=== PATIENT | female | born 1955 | race Caucasian/White ===

== ENCOUNTER 2017-04-25 21:02 | Emergency (ER) | payer BC ==
[~2017-04-25 21:02] MED LIST: *UNABLE2; CHLOR-PHENIR4 MG PO; CIP5 PO; CYMBALTA; CYMBALTA30 PO; DIL2TAB PO; DOLOPHINE5 MG PO; EFFEX75 PO; EXCEDRIN EXTRA1 EACH PO; GABAPENTIN; LEVOTHYROXIN150 MCG PO; LEVOTHYROXINE; LISINOPRIL; LISINOPRIL40 MG PO; METHATAB5B PO; MIRALAXPKT PO; MYLANTA ULTR1 TAB PO; Methadone; NEUR400 PO; NORV5 PO; NORVASC; OMEPRAZOLE; OXYCOD PO; OXYCODONE; PRILOSEC40 MG PO; SOMA; SOMATAB; SOMATAB PO; T PO; TOPROL; TOPXL50 PO; VITAMIN B-121000 MC1 SL; VITAMIN D31000 UNIT PO; ZINC220C PO; ZOFRAN4 PO; ZYVOXPO PO
[2017-04-25 22:05] LABS: BASOPHILS 0.3 %; BASOPHILS ABSOLUTE 0.03 10/3/uL (0.0-0.16); EOSINOPHILS 3.5 %; EOSINOPHILS ABSOLUTE 0.31 10/3/uL (0.0-0.53); HEMOGLOBIN 10.7 g/dL (12.0-16.0); IMMATURE GRANULOCYTES 0.6 %; IMMATURE GRANULOCYTES ABSOLUTE 0.05 10/3/uL (0.0-0.11); LYMPHOCYTES 26.2 %; LYMPHOCYTES ABSOLUTE 2.32 10/3/uL (0.67-4.30); MEAN CORPUS HGB CONC 30.1 g/dL (32.0-36.0); MEAN CORPUSCULAR HEMOGLOB 25.6 pg (26.0-34.0); MONOCYTES 8.7 %; MONOCYTES ABSOLUTE 0.77 10/3/uL (0.21-1.20); NEUTROPHILS 60.7 %; NEUTROPHILS ABSOLUTE 5.39 10/3/uL (2.02-8.40); RBC DISTRIBUTION WIDTH 15.9 % (12.0-16.0); RED CELL COUNT 4.18 10/6/uL (4.0-5.6)
[2017-04-25 22:11] LABS: ER CBC TAT 0 Hrs 11 Mins; HEMATOCRIT 35.5 % (36.0-48.0); MANUAL DIFF NO %; MEAN CORPUSCULAR VOLUME 84.9 fL (80-100); PLATELET COUNT 392 10/3/uL (150-400); WHITE BLOOD CELLS 8.9 10/3/uL (4.5-10.5)
[2017-04-25 22:24] LABS: A/G RATIO 0.8 (0.7-1.9); ALBUMIN 3.2 G/DL (3.5-5.0); ALKALINE PHOSPHATASE 119 U/L (45-117); BUN (BLOOD UREA NITROGEN) 18 MG/DL (6-23); CALCIUM, SERUM 8.5 MG/DL (8.5-10.4); CHLORIDE, SERUM 111 MMOL/L (96-112); CO2 (CARBON DIOXIDE) 26 MMOL/L (24-34); CREATININE 0.96 MG/DL (0.55-1.02); GFR AFRICAN AMERICAN 75 ML/MIN (>=60); GFR NON AFRICAN AMERICAN 64 ML/MIN (>=60); GLOBULIN 3.9 G/DL (2.5-4.1); GLUCOSE, SERUM 89 MG/DL (60-99); POTASSIUM, SERUM 4.2 MMOL/L (3.5-5.3); SGOT(AST) 16 U/L (5-40); SGPT(ALT) 20 U/L (5-65); SODIUM, SERUM 145 MMOL/L (135-148); TOTAL BILIRUBIN 0.5 MG/DL (0-1.2); TOTAL PROTEIN 7.1 G/DL (6.0-8.5)
== END 2017-04-26 03:25 | disposition home or self-care (01) ==
LOC: ER 21:02
PROVIDERS: Specialist
DX: J44.1 Chronic obstructive pulmonary disease with (acute) exacerbation (principal); F17.200 Nicotine dependence, unspecified, uncomplicated; I48.0 Paroxysmal atrial fibrillation; K21.9 Gastro-esophageal reflux disease without esophagitis; F32.9 Major depressive disorder, single episode, unspecified; Z87.01 Personal history of pneumonia (recurrent); Z90.710 Acquired absence of both cervix and uterus; Z88.0 Allergy status to penicillin; Z88.1 Allergy status to other antibiotic agents; Z88.5 Allergy status to narcotic agent; Z79.899 Other long term (current) drug therapy
CPT/HCPCS: 71020; 80053; 85025; 87040; 93005; 94640; 96374; 96375; 99285; A9270-GY; J1885; J2800; J2930